=== PATIENT | male | born 1970 | race Caucasian/White ===

== ENCOUNTER 2017-02-13 15:48 | Observation (INO) ==
--- NOTE | 2017-02-13 15:54 | Emergency Department Note ---
Overdose - Lab Data Result diagrams: 02/13/17 16:24 02/13/17 16:24 Lab Results 02/13/17 02/13/17 Range/Units 16:24 16:24 WBC 5.0 (4.3-11.1) K/mcL RBC 4.39 (4.19-5.50) M/mcL Hgb 13.2 (12.9-16.9) g/dL Hct 40.7 (37.5-50.1) % MCV 92.7 (83.0-100.0) fL MCH 30.1 (28.0-33.3) pg MCHC 32.4 (31.6-35.5) g/dL RDW 13.2 (11.5-14.5) % Plt Count 142 (140-400) K/mcL MPV 10.3 (9.4-12.4) fL Seg Neutrophils % 34.0 % Band Neutrophils % 6.0 H (0-4) % Lymphocytes % 44.0 % Monocytes % 8.0 % Eosinophils % 8.0 % Neutrophils # 2.0 (1.6-8.9) K/mcL Lymphocytes # 2.2 (0.6-4.6) K/mcL Monocytes # 0.4 (0.0-1.3) K/mcL Eosinophils # 0.4 (0.0-0.6) K/mcL Reactive Lymphocytes Present A (Not Present) Smudge Cells Present A (Not Present) Platelet Estimate Slight Decrease L (Normal) Sodium 140 (136-145) mEq/L Potassium 4.3 (3.5-4.5) mEq/L Chloride 106 (98-109) mEq/L Carbon Dioxide 26 (19-29) mEq/L BUN 13 (8-26) mg/dL Creatinine 0.82 (0.72-1.25) mg/dL Est GFR ( Amer) > 60 (> 60) Est GFR (Non-Af Amer) > 60 (> 60) BUN/Creatinine Ratio 16 (6-26) Glucose 93 (70-99) mg/dL Calculated Osmolality 290 (280-300) Calcium 9.3 (8.6-10.8) mg/dL Total Bilirubin 0.4 (0.2-1.2) mg/dL Direct Bilirubin 0.2 (0.0-0.5) mg/dL Indirect Bilirubin 0.2 (0.0-1.2) mg/dL AST 73 H (5-34) Units/L ALT 97 H (0-55) Units/L Alkaline Phosphatase 77 (38-126) Units/L Serum Total Protein 7.9 (6.0-8.3) g/dL Albumin 3.6 (3.5-5.0) g/dL Globulin 4.3 H (2.4-3.5) g/dL Albumin/Globulin Ratio 0.8 L (1.1-2.2) Salicylates < 5.0 L (15-30) mg/dL Acetaminophen < 1.0 L (10-30) mcg/mL Ethyl Alcohol < 10 (0-10) mg/dL Overdose HPI - General Chief Complaint: ED Overdose Stated Complaint: OD Time Seen by Provider: 02/13/17 15:50 Source: patient, EMS Mode of arrival: EMS Limitations: altered mental status Nursing Notes Reviewed: Yes Vital Signs Reviewed: Yes - History of Present Illness HPI Narrative: 47-year-old male who apparently was a local store and was acting strangely and the squad was called. Patient is somnolent at times but arouses to stimulation. Patient does take Suboxone. Patient denies ingestion of other substances. Pt Subjective Complaint: accidental overdose (Questionable) Onset (ago): Just [employer] Intent: unwilling to say How Overdose Was Discovered: other (Store personnel called) - Related Data Previous Rx's Medication Instructions Recorded Amoxicillin [Amoxil] 500 mg PO TID #30 capsule 01/24/17 Cyclobenzaprine [Flexeril] 10 mg PO TID #21 tablet 01/24/17 Ibuprofen [Motrin] 600 mg PO Q6HR #30 tab 01/24/17 Allergies Allergy/AdvReac Type Severity Reaction Status Date / Time No Known Allergies Allergy Verified 12/07/16 11:49 All systems ED: reviewed and negative except as stated. Constitutional: Denies: fever, chills, weakness, weight change Eyes: Denies: eye pain, eye discharge, vision change ENT ED: Denies: ear pain, throat pain, dental pain, hearing loss, epistaxis, congestion, dysphagia Cardiovascular: Denies: chest pain, palpitations, dyspnea on exertion, edema, syncope Respiratory: Denies: cough, dyspnea, wheezes, hemoptysis, stridor Gastrointestinal: Denies: abdominal pain, nausea, vomiting, diarrhea, constipation, hematemesis, melena, hematochezia Genitourinary: Denies: urgency, dysuria, frequency, hematuria Musculoskeletal: Denies: back pain, neck pain, arthralgia, myalgia Integumentary: Denies: rash, abrasion, lesions Neurological: Denies: headache, weakness, numbness, paresthesias, confusion, abnormal gait, vertigo Psychiatric: Denies: anxiety, depression, suicidal thoughts, homicidal thoughts , auditory hallucinations, visual hallucinations Endocrine: Denies: fatigue Hematological/Lymphatic: Denies: easy bleeding, easy bruising Allergic/Immunologic: Denies: facial swelling, urticaria Past Medical History - Past Medical History Medical history: Reports: asthma, COPD, hepatitis, hypertension, other Psychiatric history: Reports: no psych history - Social History Smoking Status: Current some day smoker Smokeless Tobacco Status: No Alcohol use: Reports: none Drug use: Reports: IV Drug Use Physical Exam - General Limitations: other (Somnolent but arousable) - Head Head exam: atraumatic - Eye Eye exam: Present: other (Pupils are constricted) - ENT ENT exam: normal exam - Neck Neck exam: Present: normal inspection, full ROM, trachea midline - Chest Chest inspection: Present: normal inspection - Respiratory Respiratory exam: Present: normal lung sounds bilaterally - Cardiovascular Cardiovascular exam: Present: regular rate, normal rhythm, normal heart sounds - Abdominal Exam Abdominal exam: Present: soft, Non-Tender. Absent: tenderness, distention, guarding, rebound, rigidity - Extremities Exam Extremities exam: Present: normal inspection, full ROM. Absent: tenderness, pedal edema - Expanded Lower Extremity Exam Neurovascular/Tendon exam: Absent: motor deficit, sensory deficit, tendon deficit Gait: observed and normal - Back Exam Back exam: Present: normal inspection, full ROM. Absent: tenderness - Neurological Exam Neurological exam: Present: alert, oriented X3 - Psychiatric Psychiatric exam: Present: normal affect, normal mood - Skin Skin exam: Present: warm, dry, intact, normal color Course Vital Signs Temperature 98.0 F 02/13/17 15:52 Pulse Rate 69 02/13/17 15:52 Respiratory Rate 13 02/13/17 15:52 Blood Pressure 147/87 02/13/17 15:52 O2 Sat by Pulse Oximetry 95 02/13/17 15:52 Temperature 98.0 F 02/13/17 15:52 Pulse Rate 70 02/13/17 18:07 Respiratory Rate 16 02/13/17 18:07 Blood Pressure 113/68 02/13/17 18:07 O2 Sat by Pulse Oximetry 94 02/13/17 18:07 Oxygen Delivery Oxygen Delivery Room Air Disposition Clinical Impression: Drug overdose Qualifiers: Encounter type: initial encounter Injury intent: accidental or unintentional Qualified Code(s): T50.901A - Poisoning by unspecified drugs, medicaments and biological substances, accidental (unintentional), initial encounter Disposition: Still a Patient Condition: Fair Referrals: NONE,PCP [Primary Care Provider] - Forms: ED Satisfaction Letter S.B.A.R. - S.B.A.R. Recommendation: Recommendation based on pending studies, treatments, or consults S.B.A.RDelroy Report Given to: Dr. Harrison HajiADonald Repor Time: 19:00
[2017-02-13 16:36] LABS: Hematocrit 40.7 % (37.5-50.1); Hemoglobin 13.2 g/dL (12.9-16.9); Mean Corpuscular HGB Conc 32.4 g/dL (31.6-35.5); Mean Corpuscular Hemoglobin 30.1 pg (28.0-33.3); Mean Corpuscular Volume 92.7 fL (83.0-100.0); Mean Platelet Volume 10.3 fL (9.4-12.4); Platelet Count 142 K/mcL (140-400); Red Blood Count 4.39 M/mcL (4.19-5.50); Red Cell Distribution Width 13.2 % (11.5-14.5)
[2017-02-13 16:53] LABS: Alanine Aminotransferase 97 Units/L (0-55); Albumin 3.6 g/dL (3.5-5.0); Albumin/Globulin Ratio 0.8 (1.1-2.2); Alkaline Phosphatase 77 Units/L (38-126); Aspartate Amino Transferase 73 Units/L (5-34); BUN/Creatinine Ratio 16 (6-26); Bilirubin,Direct 0.2 mg/dL (0.0-0.5); Bilirubin,Indirect 0.2 mg/dL (0.0-1.2); Bilirubin,Total 0.4 mg/dL (0.2-1.2); Blood Urea Nitrogen 13 mg/dL (8-26); Calcium 9.3 mg/dL (8.6-10.8); Carbon Dioxide 26 mEq/L (19-29); Chloride 106 mEq/L (98-109); Globulin 4.3 g/dL (2.4-3.5); Glucose 93 mg/dL (70-99); Osmolality,Calculated 290 (280-300); Potassium 4.3 mEq/L (3.5-4.5); Sodium 140 mEq/L (136-145); Total Protein 7.9 g/dL (6.0-8.3); eGFR For African Americans > 60 (> 60); eGFR For Non-African Americans > 60 (> 60)
[2017-02-13 16:55] LABS: Acetaminophen < 1.0 mcg/mL (10-30); Ethanol < 10 mg/dL (0-10); Salicylate < 5.0 mg/dL (15-30)
[2017-02-13 17:02] LABS: Eosinophils # 0.4 K/mcL (0.0-0.6); Lymphocytes # 2.2 K/mcL (0.6-4.6); Monocytes # 0.4 K/mcL (0.0-1.3); Platelet Estimate Slight Decrease (Normal); Reactive Lymphocytes Present (Not Present); Smudge Cells Present (Not Present)
--- NOTE | 2017-02-13 19:02 | Emergency Department Note ---
Overdose - Lab Data Result diagrams: 02/13/17 16:24 02/13/17 16:24 Lab Results 02/13/17 02/13/17 02/13/17 Range/Units 16:24 16:24 18:50 WBC 5.0 (4.3-11.1) K/mcL RBC 4.39 (4.19-5.50) M/mcL Hgb 13.2 (12.9-16.9) g/dL Hct 40.7 (37.5-50.1) % MCV 92.7 (83.0-100.0) fL MCH 30.1 (28.0-33.3) pg MCHC 32.4 (31.6-35.5) g/dL RDW 13.2 (11.5-14.5) % Plt Count 142 (140-400) K/mcL MPV 10.3 (9.4-12.4) fL Seg Neutrophils % 34.0 % Band Neutrophils % 6.0 H (0-4) % Lymphocytes % 44.0 % Monocytes % 8.0 % Eosinophils % 8.0 % Neutrophils # 2.0 (1.6-8.9) K/mcL Lymphocytes # 2.2 (0.6-4.6) K/mcL Monocytes # 0.4 (0.0-1.3) K/mcL Eosinophils # 0.4 (0.0-0.6) K/mcL Reactive Lymphocytes Present A (Not Present) Smudge Cells Present A (Not Present) Platelet Estimate Slight Decrease L (Normal) Sodium 140 (136-145) mEq/L Potassium 4.3 (3.5-4.5) mEq/L Chloride 106 (98-109) mEq/L Carbon Dioxide 26 (19-29) mEq/L BUN 13 (8-26) mg/dL Creatinine 0.82 (0.72-1.25) mg/dL Est GFR ( Amer) > 60 (> 60) Est GFR (Non-Af Amer) > 60 (> 60) BUN/Creatinine Ratio 16 (6-26) Glucose 93 (70-99) mg/dL Calculated Osmolality 290 (280-300) Calcium 9.3 (8.6-10.8) mg/dL Total Bilirubin 0.4 (0.2-1.2) mg/dL Direct Bilirubin 0.2 (0.0-0.5) mg/dL Indirect Bilirubin 0.2 (0.0-1.2) mg/dL AST 73 H (5-34) Units/L ALT 97 H (0-55) Units/L Alkaline Phosphatase 77 (38-126) Units/L Serum Total Protein 7.9 (6.0-8.3) g/dL Albumin 3.6 (3.5-5.0) g/dL Globulin 4.3 H (2.4-3.5) g/dL Albumin/Globulin Ratio 0.8 L (1.1-2.2) Salicylates < 5.0 L (15-30) mg/dL Urine Opiates Screen Negative (Gmalsk=588) ng/mL Acetaminophen < 1.0 L (10-30) mcg/mL Ur Barbiturates Screen Negative (Rnzurz=620) ng/mL Ur Phencyclidine Scrn Negative (Cutoff=25) ng/mL Ur Amphetamines Screen Positive H (Crqsvm=5188) ng/mL U Benzodiazepines Scrn Positive H (Cxeztb=169) ng/mL Urine Cocaine Screen Positive H (Cutoff= 300) ng/mL U Marijuana (THC) Screen Negative (Cutoff = 50) ng/mL Ethyl Alcohol < 10 (0-10) mg/dL Overdose HPI - General Chief Complaint: ED Overdose Stated Complaint: OD Time Seen by Provider: 02/13/17 15:50 Source: patient, EMS Mode of arrival: EMS Limitations: other (Somnolent but arousable) - Related Data Previous Rx's Medication Instructions Recorded Amoxicillin [Amoxil] 500 mg PO TID #30 capsule 01/24/17 Cyclobenzaprine [Flexeril] 10 mg PO TID #21 tablet 01/24/17 Ibuprofen [Motrin] 600 mg PO Q6HR #30 tab 01/24/17 Allergies Allergy/AdvReac Type Severity Reaction Status Date / Time No Known Allergies Allergy Verified 12/07/16 11:49 Constitutional: Denies: fever, chills, weakness, weight change Eyes: Denies: eye pain, eye discharge, vision change ENT ED: Denies: ear pain, throat pain, dental pain, hearing loss, epistaxis, congestion, dysphagia Cardiovascular: Denies: chest pain, palpitations, dyspnea on exertion, edema, syncope Respiratory: Denies: cough, dyspnea, wheezes, hemoptysis, stridor Gastrointestinal: Denies: abdominal pain, nausea, vomiting, diarrhea, constipation, hematemesis, melena, hematochezia Genitourinary: Denies: urgency, dysuria, frequency, hematuria Musculoskeletal: Denies: back pain, neck pain, arthralgia, myalgia Integumentary: Denies: rash, abrasion, lesions Neurological: Denies: headache, weakness, numbness, paresthesias, confusion, abnormal gait, vertigo Psychiatric: Denies: anxiety, depression, suicidal thoughts, homicidal thoughts , auditory hallucinations, visual hallucinations Endocrine: Denies: fatigue Hematological/Lymphatic: Denies: easy bleeding, easy bruising Allergic/Immunologic: Denies: facial swelling, urticaria Past Medical History - Past Medical History Medical history: Reports: asthma, COPD, hepatitis, hypertension, other Psychiatric history: Reports: no psych history - Social History Smoking Status: Current some day smoker Smokeless Tobacco Status: No Alcohol use: Reports: none Drug use: Reports: IV Drug Use Physical Exam - General Limitations: other (Somnolent but arousable) General appearance: appears intoxicated Course - Reevaluation(s) Reevaluation #1: Sign-on note: The patient signed out to my care at [address] the departing physician Dr. Larry Vega. Please see copy of his note for the H&P clinical management and ED course during the time of care under Dr. Vega. Dr. Vega signed out that this patient will need a urine tox screen from his accidental overdose and he will need to be admitted to medicine. He may contact medicine who said they are awaiting admission until results of the tox screen are known. Upon my arrival to the bedside when I was examining the patient he was being held down by several security officers because of violent behavior. I was asked and have placed physical restraint orders in the computer as well as urine straight catheter. Urine tox screen pending admission pending Time: 19:00 Vital Signs Temperature 98.0 F 02/13/17 15:52 Pulse Rate 69 02/13/17 15:52 Respiratory Rate 13 02/13/17 15:52 Blood Pressure 147/87 02/13/17 15:52 O2 Sat by Pulse Oximetry 95 02/13/17 15:52 Temperature 98.0 F 02/13/17 15:52 Pulse Rate 70 02/13/17 18:07 Respiratory Rate 16 02/13/17 18:07 Blood Pressure 113/68 02/13/17 18:07 O2 Sat by Pulse Oximetry 94 02/13/17 18:07 Oxygen Delivery Oxygen Delivery Room Air Disposition Clinical Impression: Altered mental status Drug overdose Qualifiers: Encounter type: initial encounter Injury intent: accidental or unintentional Qualified Code(s): T50.901A - Poisoning by unspecified drugs, medicaments and biological substances, accidental (unintentional), initial encounter Disposition: Admitted As Inpatient Condition: Fair Referrals: NONE,PCP [Primary Care Provider] - Forms: ED Satisfaction Letter Time of Disposition: 19:33
[2017-02-13 19:03] LABS: Amphetamine Screen,Urine Positive ng/mL (Cutoff=1000); Barbiturate Screen,Urine Negative ng/mL (Cutoff=200); Benzodiazepines Screen,Urine Positive ng/mL (Cutoff=200); Cannabinoid Screen,Urine Negative ng/mL (Cutoff = 50); Cocaine Screen,Urine Positive ng/mL (Cutoff= 300); Opiate Screen,Urine Negative ng/mL (Cutoff=300); Phencyclidine Screen,Urine Negative ng/mL (Cutoff=25)
[2017-02-13] MEDS ORDERED: Naloxone 0.4 MG/ML INJ IVP PRN (20:53)
--- NOTE | 2017-02-13 21:09 | Internal Med History&Physical ---
<Branden Gomez - Last Filed: 02/13/17 22:34> Date of Encounter: 02/13/17 Time of Encounter: 21:09 Assessment and Plan (1) Encephalopathy acute Current visit: Yes Status: Acute - Secondary to drug overdose as below. - Continue supportive treatment. (2) Drug overdose Current visit: Yes Status: Acute - UDS positive for cocaine, BZ, amphetamine. - Vital signs are stable. - Pt resting comfortably. - Will continue supportive treatment. Qualifiers: Encounter type: initial encounter Injury intent: undetermined intent Qualified Code(s): T50.904A - Poisoning by unspecified drugs, medicaments and biological substances, undetermined, initial encounter (3) Altered mental status Current visit: Yes Status: Acute - Likely secondary to drug overdose as above. - Will continue supportive treatment as above. - Restraints ordered in case of combative and violent behavior returns - Resting comfortably at the moment. Qualifiers: Altered mental status type: somnolence Qualified Code(s): R40.0 - Somnolence (4) Transaminitis Current visit: Yes Status: Acute - Possibly due IVDU - Will obtain hepatitis panel. (5) DVT prophylaxis Current visit: Yes Status: Acute - Heparin 5000 units q12 Internal Medicine - H&P: HPI Chief complaint: AMS Admitted From: Emergency Dept Plans for Post Hospital Care: Home History of present illness: Mr. Aburto is a 47 year old male who was found acting strangely in a grocery store this evening and EMS was called. He was minimally arousable during time of interview. He responds to verbal and tactile stimulation however goes back to sleep immediately without answering questions. Per ED note, he was combative in ED requiring soft restraints. Vital signs stable. Labs significant for LFT elevation. UDS was positive for benzodiazepines, amphetamines, cocaine. Past Med Surg Social Fam HX - Past Medical History Medical history: asthma, COPD, hepatitis, hypertension, other Psychiatric history: no psych history - Social History Smoking Status: Current some day smoker Smokeless Tobacco Status: No Alcohol use: none Drug use: IV Drug Use - Family History Grandmother Hx Family Endocrine Disorder: Yes Internal Medicine - H&P: Meds Albuterol Sulfate [Ventolin Hfa] 2 puff IH Q4H PRN 02/13/17 [History] Gabapentin [Neurontin] 800 mg PO TID 02/13/17 [History] Ranitidine HCl [Zantac] 150 mg PO BID 02/13/17 [History] 3 Allergy/AdvReac Type Severity Reaction Status Date / Time No Known Allergies Allergy Verified 12/07/16 11:49 ROS unobtainable: due to mental status All Systems PM: A 10-system review of systems was performed and is negative for pertinent findings except as documented above in the HPI. - Constitutional Vitals: Temp Pulse Resp BP Pulse Ox 97.9 F 57 16 138/79 97 02/13/17 20:56 02/13/17 20:56 02/13/17 20:56 02/13/17 20:56 02/13/17 20:56 Exam: Gen.: Vitals noted. No acute distress. Resting comfortably in bed. Minimally arousable to verbal and tactile stimulation. HEENT: PERRL. MMM. Cardiac: RRR, no murmur, +S1/S2 Pulmonary: CTA bilaterally, no wheezes, rales or rhonchi, equal chest expansion Abdomen: soft, pt minimally flinches to palpation of abdomen. Skin: No obvious tract jones noted. Extremities: no BLE edema, nontender calf, no cyanosis or clubbing Neuro: Minimally arousable. AOx0 Internal Med - H&P Results - Labs CBC & Chem 7: 02/13/17 21:16 02/13/17 16:24 <Otilio Banegas - Last Filed: 02/13/17 23:05> Date of Encounter: 02/13/17 Internal Medicine - H&P: HPI History of present illness: Mr. Aburto is a 47 year old male All Systems PM: A 10-system review of systems was performed and is negative for pertinent findings except as documented above in the HPI. - Constitutional Vitals: Temp Pulse Resp BP Pulse Ox 97.9 F 57 16 138/79 97 02/13/17 20:56 02/13/17 20:56 02/13/17 20:56 02/13/17 20:56 02/13/17 20:56 Internal Med - H&P Results - Labs CBC & Chem 7: 02/13/17 21:16 02/13/17 16:24 Labs: Short CBC 02/13/17 Range/Units 21:16 WBC 3.4 L (4.3-11.1) K/mcL Hgb 12.9 (12.9-16.9) g/dL Hct 39.2 (37.5-50.1) % Plt Count 148 (140-400) K/mcL Neutrophils # 0.7 L (1.6-8.9) K/mcL - Attending Attestation I have independently seen and examined this patient on 02/13/17 and discussed plan of care with resident physician Gracia whose H/P reflect our plan of care 47 M with opiate dependence and polysubstance abuse, tobacco abuse, Chronic Hep C admitted for acute encephalopathy Was said to have been violent in the ER an d warranted restraints was at bedside at time of review, known to use drugs and under "stress lately" He is somnolent but rousable and follows commands, oriented X3. Systemic exam is otherwise unremarkable Labs and Imaging reviewed Agree with supportive care Patient is not suicidal , he verbally stated this to me Rest of details as in resident physician's documentation
[2017-02-13 21:36] LABS: Basophils % 0.9 %; Eosinophils # 0.1 K/mcL (0.0-0.6); Eosinophils % 3.5 %; Hematocrit 39.2 % (37.5-50.1); Hemoglobin 12.9 g/dL (12.9-16.9); Immature Granulocytes % 0.3 % (0-4); Lymphocytes # 1.9 K/mcL (0.6-4.6); Lymphocytes % 55.8 %; Mean Corpuscular HGB Conc 32.9 g/dL (31.6-35.5); Mean Corpuscular Hemoglobin 30.1 pg (28.0-33.3); Mean Corpuscular Volume 91.4 fL (83.0-100.0); Mean Platelet Volume 10.6 fL (9.4-12.4); Monocytes # 0.7 K/mcL (0.0-1.3); Monocytes % 19.8 %; Neutrophils # 0.7 K/mcL (1.6-8.9); Platelet Count 148 K/mcL (140-400); Red Blood Count 4.29 M/mcL (4.19-5.50); Red Cell Distribution Width 13.2 % (11.5-14.5); Segmented Neutrophils % 19.7 %
[2017-02-13 22:14] LABS: Reactive Lymphocytes Present (Not Present)
[2017-02-13] MEDS: 0.9 % Sodium Chloride 1,000 ML IVC SCH (23:14)
[2017-02-14 03:29] LABS: BUN/Creatinine Ratio 18 (6-26); Blood Urea Nitrogen 13 mg/dL (8-26); Calcium 8.8 mg/dL (8.6-10.8); Carbon Dioxide 28 mEq/L (19-29); Chloride 108 mEq/L (98-109); Glucose 83 mg/dL (70-99); Magnesium 1.8 mg/dL (1.6-2.6); Osmolality,Calculated 291 (280-300); Potassium 3.8 mEq/L (3.5-4.5); Sodium 141 mEq/L (136-145); eGFR For African Americans > 60 (> 60); eGFR For Non-African Americans > 60 (> 60)
[2017-02-14] MEDS ORDERED: *HR* Heparin 5,000 UNIT/ML VIAL SQ SCH (06:00)
[2017-02-14] MEDS: 0.9 % Sodium Chloride 1,000 ML IVC SCH (07:16)
[2017-02-14 10:23] LABS: Alanine Aminotransferase 78 Units/L (0-55); Albumin/Globulin Ratio 0.8 (1.1-2.2); Alkaline Phosphatase 59 Units/L (38-126); Aspartate Amino Transferase 61 Units/L (5-34); Bilirubin,Direct 0.2 mg/dL (0.0-0.5); Bilirubin,Indirect 0.1 mg/dL (0.0-1.2); Bilirubin,Total 0.3 mg/dL (0.2-1.2); Globulin 3.8 g/dL (2.4-3.5); Total Protein 6.8 g/dL (6.0-8.3)
[2017-02-14 11:21] VITALS: BP 118/68
--- NOTE | 2017-02-14 11:47 | Discharge Summary ---
Date of Encounter: 02/14/17 Time of Encounter: 11:19 - Discharge Diagnosis (1) Drug overdose Priority: Primary Status: Acute Comments: Frank Serna is a 47 y/o male with no significant PMH who presented to [facility] on 02/13/2017 after being found acting strangely in a grocery store and EMS was called. He was found to be confused and it was suspected he suffered from an accidental overdose. His mentation improved to baseline and he was discharged on 02/14/2017 in stable condition. 1. Accidental drug overdose: details unclear but apparently was noted to have strange/bizarre behavior at local store. Per ED note, he was combative on arrival and required soft restraints. UDS positive for benzodiazepines, amphetamines, cocaine. Patient has hx IVDA however he denies illegal/ recreational drug use. Denied intention to harm or kill self. Suspect he is currently using IV drugs. Mentation cleared and back to baseline at time of discharge. Advised cessation of illegal substances 2. Hepatitis C: per hx. Follows with [facility]. LFTs minimally elevated but stable. Can follow-up outpatient as previously planned Qualifiers: Encounter type: initial encounter Injury intent: undetermined intent Qualified Code(s): T50.904A - Poisoning by unspecified drugs, medicaments and biological substances, undetermined, initial encounter (2) Hepatitis C Priority: Primary Status: Chronic Qualifiers: Viral hepatitis chronicity: chronic Hepatic coma status: without hepatic coma Qualified Code(s): B18.2 - Chronic viral hepatitis C - Discharge Medications Home Medications: Albuterol Sulfate [Ventolin Hfa] 2 puff IH Q4H PRN 02/13/17 [History] Gabapentin [Neurontin] 800 mg PO TID 02/13/17 [History] Ranitidine HCl [Zantac] 150 mg PO BID 02/13/17 [History] Allergies/Adverse Reactions: 3 Allergy/AdvReac Type Severity Reaction Status Date / Time No Known Allergies Allergy Verified 12/07/16 11:49 Date of admission: 02/13/17 19:44 Primary care physician: PCP NONE Discharging clinician: Jeniffer Louis Anticipated date of discharge: 02/14/17 - Patient Status Disposition: Home, Self-Care Condition: Good Functional capacity at discharge: independent ambulation Overall status at discharge: patient is back to baseline - Discharge Instructions Instructions: Benzodiazepine Abuse (DC), Cocaine Abuse (DC), Methamphetamine Abuse (DC) Follow Up With: NONE,PCP [Primary Care Provider] - - Diet and Activity Activity: increase activity as tolerated Diet: advance to your usual diet Interval History: Seen and examined at bedside. Patient is new to me, information obtained from chart review and patient report. Patient says he feels better. Back to baseline and wants to discharge home today. Reviewed urine drug screen with him and patient denies ingestion of illegal/recreational drugs. States he does not know what happened. at bedside and only gives minimal details. She states patient just was not acting right so someone called the squad. Patient denies suicidal ideation. Says he takes Suboxone but does not use IV drugs. He has no complaints on my exam. Hospital course: See assessment and plan for hospital course - Time Spent with Patient Total time spent providing and/or coordinating discharge services: - Constitutional Vitals: Temp Pulse Resp BP Pulse Ox 97.9 F 58 16 104/66 96 02/14/17 07:10 02/14/17 07:10 02/14/17 07:10 02/14/17 07:10 02/14/17 07:10 General appearance: Present: disheveled, A&O X 3, no acute distress - Head Head exam: Present: atraumatic, normocephalic - Eye Eye exam: Present: PERRL, conjuntiva pink, sclera anicteric Pupils: Present: PERRL - Neck Neck exam general surgery: Present: supple, trachea midline. Absent: lymphadenopathy - Respiratory Respiratory exam: Present: CTAB. Absent: accessory muscle use, rales, rhonchi, wheezes - Cardiovascular Cardiovascular exam: Present: RRR, +S1, +S2. Absent: diastolic murmur, gallop, rubs, systolic murmur - GI/Abdominal GI/Abdominal exam: Present: normal bowel sounds, soft, no peritoneal signs. Absent: distended, tenderness - Extremities Exam Extremities exam: Present: warm, radial pulses palpable and symmetrical. Absent : calf tenderness, cyanotic, pedal edema - Neurological Exam Neurological exam: Present: CN II-XII intact, oriented X3, no focal deficits. Absent: pronater drift, facial droop, speech deficit - Skin Skin exam: Present: dry, intact
== END 2017-02-14 13:30 | disposition home or self-care (01) ==
LOC: 3BNU 15:48 → EMEROO 15:48 → 3BNU 20:13
PROVIDERS: ADMIT Registered Nurse; ATTEND Registered Nurse